=== PATIENT | male | born 1970 | race Caucasian/White ===

== ENCOUNTER 2023-01-18 20:10 | Inpatient (IN) | payer MEDICAID ==
[~2023-01-18] VITALS: Ht 165.1 cm; Wt 71.7 kg
--- NOTE | 2023-01-18 20:35 | NUR ---
PT PLACED ON 4L NC, O2 SAT AT 95% IN WAITING ROOM UNTIL BED IS OPEN. MD AND CN MADE AWARE.
[2023-01-18 20:39] VITALS: BP_SYST 113
--- NOTE | 2023-01-18 21:10 | NUR ---
Dr. Pedroza at bedside examining the patient.
--- NOTE | 2023-01-18 21:36 | NUR ---
COVID SWAB COLLECTED AND SENT TO LAB.
[2023-01-18 21:39] LABS: BASOPHILS % (AUTO) 0.4 % (0.0-2.0); EOSINOPHILS # (AUTO) 0.1 K/uL (0.0-0.4); HEMATOCRIT 45.3 % (36-54); HEMOGLOBIN 15.1 g/dL (14.0-18.0); LYMPHOCYTES % (AUTO) 20.6 % (20.5-51.5); MEAN CORPUSCULAR HEMOGLOBIN 31 pg (27-31); MEAN CORPUSCULAR HGB CONC 33 % (32-36); MEAN CORPUSCULAR VOLUME 94 fL (79.0-98.0); MONOCYTES # (AUTO) 1.2 K/uL (0.0-1.0); MONOCYTES % (AUTO) 12.1 % (1.7-9.3); NEUTROPHILS # (AUTO) 6.4 K/uL (1.8-7.7); NEUTROPHILS % (AUTO) 65.9 % (40.0-70.0); PLATELET COUNT (AUTO) 198 K/uL (130-430); RED BLOOD CELL COUNT(AUTO) 4.83 MIL/uL (4.2-6.2); RED CELL DISTRIBUTION WIDTH 13.8 % (9.0-15.0); WHITE BLOOD COUNT (AUTO) 9.7 K/uL (4.8-10.8)
[2023-01-18 22:13] LABS: ANION GAP 10 (5-15); CHLORIDE 97 mmol/L (98-107); CREATININE 1.33 mg/dL (0.55-1.30); GFR AFRICAN AMERICAN 73 mL/min (>90); GLUCOSE 89 mg/dL (70-99); UREA NITROGEN, BLOOD 44 mg/dL (8-21)
[2023-01-18 22:16] LABS: ALANINE AMINOTRANSFERASE 19 U/L (12-78); ALBUMIN 3.1 g/dL (3.4-4.8); ASPARTATE AMINOTRANSFERASE 19 U/L (10-37); C-REACTIVE PROTEIN QUANT 6.9 mg/dL (0-0.5); TOTAL BILIRUBIN 0.6 mg/dL (0.0-1.0)
[2023-01-18 22:43] LABS: ACETONE, SERUM NEGATIVE (NEGATIVE)
--- NOTE | 2023-01-18 22:48 | NUR ---
PT AT 4L NC. NO MEDICATIONS TAKEN HOME.
--- NOTE | 2023-01-18 22:55 | NUR ---
Admit bed requested Patient will be admitted to care of Dr.A. KLINE. Admitted to MED SURG unit. Diagnosis PNA Inpatient (Yes or No) YES Observation (Yes or No) NO Orientation concerns or request close to nursing station (Yes or No) NO Covid Status NEGATIVE On vent or bipap NO Isolation requirements NO Needs a sitter NO From Home (Yes or if No enter name of facility) YES Requires Dialysis (Yes or No) NO Med Rec Completed (Yes of No) YES
[2023-01-19] MEDS ORDERED: MORPHINE 4 MG INJ. 4 MG/ML VIAL IVP ONE
--- NOTE | 2023-01-19 01:11 | NUR ---
RECEIVED PT FROM ER [facility]IA [facility] WITH SOB AND FEVER OF 101.2, AOX3, C/O ABD PAIN 04/09, PT MADE COMFORTABLE IN BED, PATENT IV ACCESS TO THE LAC, STARTED ON 2L OF OXYGEN VIA N/C, ON BEDREST, FAMILY MEMBER BY BEDSIDE, OFFERED COOLING MEASURES, CALLED DR BAUTISTA WHO ORDERED MEDS, IV HYDRATION, ORDERED AND GIVEN TO PT, ORIENTED TO ROOM, CALL LIGHT BED POSITIONING, INSTRUCTED TO CALL FOR [employer] MACHINE IF NEEDED, PT VERBALIZED UNDERSTANDING, WILL CONTINUE WITH POC
[2023-01-19] MEDS ORDERED: HYDROcodone/ACETAMIN 5-325 MG TAB (NORCO/ VICODIN) PO PRN ×2 (01:45→09:45)
[2023-01-19] MEDS ORDERED: NALOXONE HCL 0.4 MG/ML AMP (NARCAN) IVP PRN ×4 (01:45→09:45)
[2023-01-19] MEDS ORDERED: HYDROcodone/ACETAMIN 10-325 MG TAB PO PRN ×2 (01:45→09:45)
[2023-01-19] MEDS ORDERED: ACETAMINOPHEN 325 MG TABLET PO PRN ×2 (01:45→09:45)
[2023-01-19] MEDS: D5/0.45 NS 1,000 ML IV SCH ×3 (01:56→21:57)
[2023-01-19] MEDS: cefTRIAXone 1 GM in D5W 50 ML IV SCH ×2 (02:30→21:55)
[2023-01-19] MEDS ORDERED: AZITHROMYCIN 500 MG in NS 250 ML IV ONE (02:30)
[2023-01-19] MEDS ORDERED: cefTRIAXone 1 GM IVPB PREMIX 50 ML IV ONE (04:01)
[2023-01-19] MEDS ORDERED: AZITHROMYCIN 500 MG/VIAL (ZITHROMAX) IV ONE ×2 (04:01→22:01)
--- NOTE | 2023-01-19 06:54 | NUR ---
PT IN BED, AOX3, EVEN AND UNLABORED BREATHING NOTED, NO FEVER ATT, PT DENIED SOB, CP , N/V OR PAIN ATT, PATENT IV TO THE LAC WITH D5 1/2 ONGOING, ON 2L OF OXYGEN VIA N/C, ON BEDREST, VOIDING, WILL ENDORSE TO INCOMING RN
[2023-01-19 07:51] VITALS: BP_SYST 131
[2023-01-19] MEDS ORDERED: D5/0.45 NS 1,000 ML IV SCH (09:45)
[2023-01-19] MEDS ORDERED: ALBUTEROL SULFATE 0.083% 2.5 MG/3 ML VIAL.NEB INH PRN (09:45)
[2023-01-19] MEDS ORDERED: IPRATROPIUM BROM 0.5 MG/2.5 ML VIAL.NEB (ATROVENT) INH PRN (09:45)
[2023-01-19] MEDS ORDERED: ONDANSETRON HCL 4 MG/2 ML VIAL IVP PRN (09:45)
[2023-01-19 15:27] VITALS: BP_SYST 107
[2023-01-19 19:55] VITALS: BP_SYST 98
--- NOTE | 2023-01-19 20:00 | NUR ---
RECEIVED PT IN BED, AOX3, EVEN AND UNLABORED BREATHING NOTED, PT DENIED SOB, CP , N/V OR PAIN ATT, PATENT IV TO THE LAC WITH D5 1/2 ONGOING, ON 2L OF OXYGEN VIA N/C, WILL CONTINUE WITH POC
[2023-01-19] MEDS ORDERED: cefTRIAXone 1 GM VIAL ONE (22:01)
[2023-01-20 00:08] VITALS: BP_SYST 101
[2023-01-20 06:08] LABS: BASOPHILS % (AUTO) 0.2 % (0.0-2.0); EOSINOPHILS # (AUTO) 0.7 K/uL (0.0-0.4); EOSINOPHILS % (AUTO) 8.1 % (0.0-4.0); HEMATOCRIT 43.4 % (36-54); HEMOGLOBIN 14.7 g/dL (14.0-18.0); LYMPHOCYTES # (AUTO) 2.2 K/uL (1.0-5.5); LYMPHOCYTES % (AUTO) 24.7 % (20.5-51.5); MEAN CORPUSCULAR HEMOGLOBIN 32 pg (27-31); MEAN CORPUSCULAR HGB CONC 34 % (32-36); MEAN CORPUSCULAR VOLUME 95 fL (79.0-98.0); MONOCYTES # (AUTO) 0.8 K/uL (0.0-1.0); MONOCYTES % (AUTO) 9.1 % (1.7-9.3); NEUTROPHILS # (AUTO) 5.2 K/uL (1.8-7.7); NEUTROPHILS % (AUTO) 57.9 % (40.0-70.0); PLATELET COUNT (AUTO) 180 K/uL (130-430); RED BLOOD CELL COUNT(AUTO) 4.56 MIL/uL (4.2-6.2); RED CELL DISTRIBUTION WIDTH 13.7 % (9.0-15.0); WHITE BLOOD COUNT (AUTO) 9.1 K/uL (4.8-10.8)
[2023-01-20] MEDS: D5/0.45 NS 1,000 ML IV SCH ×2 (06:21→07:43)
--- NOTE | 2023-01-20 06:32 | NUR ---
PT IN BED, AOX4, EVEN AND UNLABORED BREATHING NOTED, PT DENIED SOB, CP , N/V OR PAIN ATT, PATENT IV TO THE LAC WITH D5 1/2NS ONGOING, ON 2L OF OXYGEN VIA N/C, ON BEDREST, TOLERATING REGULAR DIET, VOIDING, SAFETY PREC MAINTAINED, CALL LIGHT WITHIN REACH, WILL ENDORSE TO INCOMING RN
[2023-01-20 06:57] LABS: ALBUMIN 2.7 g/dL (3.4-4.8); CALCIUM 8.1 mg/dL (8.4-11.0); CREATININE 0.87 mg/dL (0.55-1.30); TOTAL BILIRUBIN 0.3 mg/dL (0.0-1.0)
[2023-01-20 07:30] VITALS: BP_SYST 103
--- NOTE | 2023-01-20 07:30 | NUR ---
Patient alert and oriented x 4 with occasional non-productive cough. Denies pain or needs. IVF infusing as per order. Continues on 2 liters oxygen. Will wean off as tolerated.
[2023-01-20 11:37] VITALS: BP_SYST 107
--- NOTE | 2023-01-20 13:51 | NUR ---
Ambulated to room. Oxygen saturation 97% on room air. No noted distress with exception of cough. Denies pain. Will continue to monitor.
[2023-01-20 17:59] VITALS: BP_SYST 109
[2023-01-20 20:00] VITALS: BP_SYST 126
[2023-01-20] MEDS: cefTRIAXone 1 GM in D5W 50 ML IV SCH (20:09)
[2023-01-20] MEDS: AZITHROMYCIN 250 MG in NS 250 ML IV SCH (21:12)
[2023-01-21 00:53] VITALS: BP_SYST 112
--- NOTE | 2023-01-21 01:15 | NUR ---
RECEIVED PT GOT SBAR REPORT FROM JESS ARSHAD. PT LYING IN BED. EYES CLOSED. BREATHING EVEN AND NONLABORED ON RA. SAFETY CHECKS IN PLACE. CALL LIGHT IN REACH. CONTINUE TO MONITOR
--- NOTE | 2023-01-21 01:18 | NUR ---
PATIENT IN BED RESTING, EYES CLOSED, RA, VSS, AMB IN ROOM, LAC PIV SL (IV ABTS), CONT OF B/B, DENIES ALL PAIN DURING THIS SHIFT.
--- NOTE | 2023-01-21 01:19 | NUR ---
REPORT GIVEN TO RANDY CANAS
[2023-01-21 06:16] LABS: HEMOGLOBIN 14.8 g/dL (14.0-18.0)
[2023-01-21 06:43] LABS: ALBUMIN 2.7 g/dL (3.4-4.8); C-REACTIVE PROTEIN QUANT 6.2 mg/dL (0-0.5); CALCIUM 8.3 mg/dL (8.4-11.0); CREATININE 0.71 mg/dL (0.55-1.30); TOTAL BILIRUBIN 0.4 mg/dL (0.0-1.0)
--- NOTE | 2023-01-21 07:11 | NUR ---
CLOSING NOTE PT LYING IN BED. EYES CLOSE. BREATHING EVEN AND NONLABORED ON RA. NO S/S OF ACUTE DISTRESS OR PAIN. SAFETY CHECKS IN PLACE. CALL LIGHT IN REACH. ENDORSED TO DAY SHIFT NURSE
[2023-01-21 07:21] LABS: ERYTHROCYTE SEDIMENTATION RATE 57 MM/HR (0-15)
--- NOTE | 2023-01-21 07:30 | NUR ---
Patient alert and oriented x 4. No acute distress noted. Denies pain or needs. Continues on room air with oxygen saturation 93%. Call light in reach and safety measures in place.
[2023-01-21 07:37] VITALS: BP_SYST 120
[2023-01-21 07:39] LABS: BASOPHILS % (AUTO) 0.4 % (0.0-2.0); EOSINOPHILS # (AUTO) 0.8 K/uL (0.0-0.4); EOSINOPHILS % (AUTO) 9.6 % (0.0-4.0); HEMATOCRIT 44.7 % (36-54); LYMPHOCYTES # (AUTO) 2.1 K/uL (1.0-5.5); LYMPHOCYTES % (AUTO) 23.9 % (20.5-51.5); MEAN CORPUSCULAR HEMOGLOBIN 32 pg (27-31); MEAN CORPUSCULAR HGB CONC 33 % (32-36); MEAN CORPUSCULAR VOLUME 95 fL (79.0-98.0); MONOCYTES # (AUTO) 0.8 K/uL (0.0-1.0); MONOCYTES % (AUTO) 8.9 % (1.7-9.3); NEUTROPHILS % (AUTO) 57.2 % (40.0-70.0); PLATELET COUNT (AUTO) 200 K/uL (130-430); RED BLOOD CELL COUNT(AUTO) 4.69 MIL/uL (4.2-6.2); RED CELL DISTRIBUTION WIDTH 13.7 % (9.0-15.0); WHITE BLOOD COUNT (AUTO) 8.7 K/uL (4.8-10.8)
[2023-01-21 11:08] VITALS: BP_SYST 113
[2023-01-21 17:07] VITALS: BP_SYST 102
--- NOTE | 2023-01-21 19:00 | NUR ---
Patient sitting up in bed. No noted distress. Denies pain. Report given to pm nurse.
[2023-01-21 19:30] VITALS: BP_SYST 107
--- NOTE | 2023-01-21 19:30 | NUR ---
PM ASSESSMENT; - Patient is awake, alert, oriented X 4. Patient oriented to hospital room, call light, toileting, pain management and safety-teach back done. Pt denies any chest pain,pain,N&V,sob,or any acute distress. Patient informed that will be I (Manuela)will be his nurse and that their room number is 117-A. Call light within reach, side rails x2. VSS. IV site patent no s/s any infiltration after flushed w/ NS. Cont to monitor pt.
[2023-01-21 20:06] LABS: MYCOPLASMA PNEUMONIAE IgG 1430 U/mL (0-99); MYCOPLASMA PNEUMONIAE IgM <770 U/mL (0-769)
[2023-01-21] MEDS: cefTRIAXone 1 GM in D5W 50 ML IV SCH (21:18)
[2023-01-21] MEDS: AZITHROMYCIN 250 MG in NS 250 ML IV SCH (21:19)
[2023-01-22] VITALS: BP_SYST 116
--- NOTE | 2023-01-22 00:23 | NUR ---
ROUNDS; -Pt is asleep. No s/s any pain,sob,or any acute distress noted. Side rails x3,call light w/in reach. will cont to monitor pt.
--- NOTE | 2023-01-22 04:15 | NUR ---
ROUNDS; -Pt is asleep. No s/s any pain,sob,or any acute distress noted. IV site patent no s/s any infiltration noted. Bed alarmed, side rails x3,call light w/in reach. will cont to monitor pt.
--- NOTE | 2023-01-22 06:49 | NUR ---
CLOSING NOTES; -Pt is asleep. No s/s any pain,sob,or any acute distress noted. IV site patent no s/s any infiltration noted. Pt's condition stable. Bed alarmed, side rails x3,call light w/in reach. Will endorse to next nurse to cont care.
[2023-01-22 07:24] LABS: C-REACTIVE PROTEIN QUANT 3.4 mg/dL (0-0.5); CALCIUM 8.6 mg/dL (8.4-11.0); CREATININE 0.75 mg/dL (0.55-1.30)
--- NOTE | 2023-01-22 07:35 | NUR ---
received pt asleep. no distress. respirations even, unlabored. skin warm and dry. call light in reach.
[2023-01-22 07:53] LABS: BASOPHILS % (AUTO) 0.4 % (0.0-2.0); EOSINOPHILS # (AUTO) 0.7 K/uL (0.0-0.4); EOSINOPHILS % (AUTO) 7.4 % (0.0-4.0); HEMATOCRIT 45.2 % (36-54); HEMOGLOBIN 15.2 g/dL (14.0-18.0); LYMPHOCYTES # (AUTO) 2.3 K/uL (1.0-5.5); LYMPHOCYTES % (AUTO) 25.2 % (20.5-51.5); MEAN CORPUSCULAR HEMOGLOBIN 32 pg (27-31); MEAN CORPUSCULAR HGB CONC 34 % (32-36); MEAN CORPUSCULAR VOLUME 94 fL (79.0-98.0); MONOCYTES # (AUTO) 0.7 K/uL (0.0-1.0); NEUTROPHILS # (AUTO) 5.4 K/uL (1.8-7.7); PLATELET COUNT (AUTO) 242 K/uL (130-430); RED BLOOD CELL COUNT(AUTO) 4.78 MIL/uL (4.2-6.2); RED CELL DISTRIBUTION WIDTH 13.6 % (9.0-15.0); WHITE BLOOD COUNT (AUTO) 9.1 K/uL (4.8-10.8)
[2023-01-22 08:00] VITALS: BP_SYST 111; BP_SYST 140
[2023-01-22 08:34] LABS: ERYTHROCYTE SEDIMENTATION RATE 51 MM/HR (0-15)
--- NOTE | 2023-01-22 09:10 | NUR ---
pt awake, alert, oriented, no distress. occasional congested cough, nonproductive. skin warm and dry. denies pain, denies discomfort. states bm this morning, voiding without difficulty. BRP. call light in reach
[2023-01-22 11:40] VITALS: BP_SYST 110
[2023-01-22 12:10] VITALS: BP_SYST 110
--- NOTE | 2023-01-22 15:56 | NUR ---
pt in restroom when Dr Block entered room. left prior to seeing pt. back to bed. lab drawing blood work now.
[2023-01-22 16:23] VITALS: BP_SYST 113
[2023-01-22 19:32] VITALS: BP_SYST 121
--- NOTE | 2023-01-22 19:32 | NUR ---
PM ASSESSMENT; - Patient is awake, alert, oriented X 4. Patient oriented to hospital room, call light, toileting, pain management and safety-teach back done. Pt denies any chest pain,pain,N&V,sob,or any acute distress. Patient informed that I (Manuela) will be his nurse and that their room number is 117-A. Call light within reach, side rails x2. VSS. IV site patent no s/s any infiltration after flushed w/ NS. Cont to monitor pt.
[2023-01-22] MEDS: cefTRIAXone 1 GM in D5W 50 ML IV SCH (20:46)
[2023-01-22] MEDS: AZITHROMYCIN 250 MG in NS 250 ML IV SCH (20:46)
[2023-01-23 00:10] VITALS: BP_SYST 103
--- NOTE | 2023-01-23 00:12 | NUR ---
ROUNDS; -Pt is resting in bed comfortably. Pt denies any pain,sob,or any acute distress. VSS. Side rails x2,call light w/in reach. will cont to monitor pt.
--- NOTE | 2023-01-23 04:18 | NUR ---
ROUNDS; -Pt is asleep. No s/s any pain,sob,or any acute distress noted. Bed alarmed, side rails x3,call light w/in reach. will cont to monitor pt.
[2023-01-23 06:57] LABS: BASOPHILS # (AUTO) 0.1 K/uL (0.0-0.2); BASOPHILS % (AUTO) 0.6 % (0.0-2.0); EOSINOPHILS # (AUTO) 0.6 K/uL (0.0-0.4); EOSINOPHILS % (AUTO) 7.1 % (0.0-4.0); HEMATOCRIT 46.5 % (36-54); HEMOGLOBIN 15.8 g/dL (14.0-18.0); LYMPHOCYTES # (AUTO) 3.1 K/uL (1.0-5.5); LYMPHOCYTES % (AUTO) 35.5 % (20.5-51.5); MEAN CORPUSCULAR HEMOGLOBIN 32 pg (27-31); MEAN CORPUSCULAR HGB CONC 34 % (32-36); MEAN CORPUSCULAR VOLUME 93 fL (79.0-98.0); MONOCYTES # (AUTO) 0.6 K/uL (0.0-1.0); MONOCYTES % (AUTO) 6.4 % (1.7-9.3); NEUTROPHILS # (AUTO) 4.4 K/uL (1.8-7.7); NEUTROPHILS % (AUTO) 50.4 % (40.0-70.0); PLATELET COUNT (AUTO) 288 K/uL (130-430); RED CELL DISTRIBUTION WIDTH 13.3 % (9.0-15.0); WHITE BLOOD COUNT (AUTO) 8.7 K/uL (4.8-10.8)
[2023-01-23 07:16] LABS: C-REACTIVE PROTEIN QUANT 1.9 mg/dL (0-0.5); CALCIUM 8.8 mg/dL (8.4-11.0); CREATININE 0.82 mg/dL (0.55-1.30)
--- NOTE | 2023-01-23 07:45 | NUR ---
received pt asleep. no distress. awakens easily. denies pain. skin warm and dry. iv intact. call light in reach. water provided. vitals stable. no coughing at this time
[2023-01-23 08:00] VITALS: BP_SYST 128
[2023-01-23 08:07] LABS: ERYTHROCYTE SEDIMENTATION RATE 58 MM/HR (0-15)
[2023-01-23 12:00] VITALS: BP_SYST 116
--- NOTE | 2023-01-23 12:15 | NUR ---
encouraged pt to ambulate in room for mobility respirations even, unlabored. no distress. smiling, pleasant asking when he may dc home. explained he is still receiving iv antibiotics and no notes yet from MD to indicate discharge.
[2023-01-23 16:44] VITALS: BP_SYST 120
--- NOTE | 2023-01-23 17:00 | NUR ---
no distress. call light in reach water provided.
[2023-01-23 19:50] VITALS: BP_SYST 121
--- NOTE | 2023-01-23 19:55 | NUR ---
RECEIVED PT IN BED, AOX4, EVEN AND UNLABORED BREATHING NOTED, PT DENIED SOB, CP , N/V OR PAIN ATT, SALINE LOCK IV TO THE LAC, ON RA, AMBULATORY, WILL CONTINUE WITH POC
[2023-01-23] MEDS: cefTRIAXone 1 GM in D5W 50 ML IV SCH (20:31)
[2023-01-23] MEDS ORDERED: AZITHROMYCIN 500 MG/VIAL (ZITHROMAX) IV ONE (21:42)
[2023-01-23] MEDS: AZITHROMYCIN 250 MG in NS 250 ML IV SCH (21:51)
[2023-01-24 01:51] VITALS: BP_SYST 122
--- NOTE | 2023-01-24 06:30 | NUR ---
PT IN BED, AOX4, EVEN AND UNLABORED BREATHING NOTED, PT DENIED SOB, CP , N/V OR PAIN ATT, SALINE LOCK IV TO THE LAC, PATENT AND INTACT, ON RA, AMBULATORY TO RESTROOM, TOLERATING REGULAR DIET, SAFETY PREC MAINTAINED, CALL LIGHT WITHIN REACH, WILL ENDORSE TO INCOMING RN
[2023-01-24 06:34] LABS: COCCIDIOIDES AB IGG 1.3 IV (<=0.9); COCCIDIOIDES AB IGM 0.1 IV (<=0.9)
[2023-01-24 07:10] LABS: BASOPHILS % (AUTO) 0.5 % (0.0-2.0); EOSINOPHILS # (AUTO) 0.7 K/uL (0.0-0.4); EOSINOPHILS % (AUTO) 7.7 % (0.0-4.0); HEMATOCRIT 45.4 % (36-54); HEMOGLOBIN 15.5 g/dL (14.0-18.0); LYMPHOCYTES # (AUTO) 2.7 K/uL (1.0-5.5); MEAN CORPUSCULAR HEMOGLOBIN 32 pg (27-31); MEAN CORPUSCULAR HGB CONC 34 % (32-36); MEAN CORPUSCULAR VOLUME 94 fL (79.0-98.0); MONOCYTES # (AUTO) 0.5 K/uL (0.0-1.0); MONOCYTES % (AUTO) 6.2 % (1.7-9.3); NEUTROPHILS # (AUTO) 4.7 K/uL (1.8-7.7); NEUTROPHILS % (AUTO) 54.6 % (40.0-70.0); PLATELET COUNT (AUTO) 311 K/uL (130-430); RED BLOOD CELL COUNT(AUTO) 4.86 MIL/uL (4.2-6.2); RED CELL DISTRIBUTION WIDTH 13.2 % (9.0-15.0); WHITE BLOOD COUNT (AUTO) 8.6 K/uL (4.8-10.8)
[2023-01-24 07:38] LABS: ALBUMIN 2.9 g/dL (3.4-4.8); C-REACTIVE PROTEIN QUANT 0.8 mg/dL (0-0.5); CALCIUM 8.6 mg/dL (8.4-11.0); CREATININE 0.84 mg/dL (0.55-1.30); TOTAL BILIRUBIN 0.5 mg/dL (0.0-1.0)
[2023-01-24 07:49] LABS: ERYTHROCYTE SEDIMENTATION RATE 43 MM/HR (0-15)
--- NOTE | 2023-01-24 12:28 | NUR ---
SEND OUT LAB RESULTS Per Nubia in lab HIV was collected 01/19 and should have results at this time. She states that lab staff will follow up with the send out lab to identify the delay. TB gold was collected 01/23 and has a 3 day turn around time, results cannot be expected until 01/26. Cocci and Crypto testings have been resulted. Legionella is a urine specimen that nursing staff has to deliver to the laboratory.
[2023-01-24 13:00] VITALS: BP_SYST 113
[2023-01-24 13:06] LABS: CRYPTOCOCCUS AG, SERUM Negative (Negative)
--- NOTE | 2023-01-24 13:30 | NUR ---
Urine specimen for legionella collected and sent to the lab
[2023-01-24 16:51] VITALS: BP_SYST 119
--- NOTE | 2023-01-24 17:40 | NUR ---
Per Kathrine in lab staff HIV test has been sent out today and the recent stat order placed at about 1700 can be cancelled. This 1700 order was placed after this literary writer spoke with Kathrine in the lab and was informed that the HIV test that was cancelled due to the specimen not being received
--- NOTE | 2023-01-24 18:45 | NUR ---
Mr Edouard has been assessed as indicated. He continues to deny pain. He ambulates independently. He prefers his bed to be very high. this has been discouraged and the risks have been explained. yet insists on his preferred bed height. He continues to have a moist productive cough. He manages his secretions well. He has been made aware of pending lab results that have to be resolved before he can be DC. He was compliant with the DCP. He is presently resting quietly with no s/s of distress or discomfort.
--- NOTE | 2023-01-24 19:30 | NUR ---
OPENING NOTE PT WAS USING RESTROOM. A/O X4. BREATHING EVEN AND NONLABORED. NO ACUTE S/S OF DISTRESS OR PAIN. SAFETY CHECKS IN PLACE. CALL LIGHT IN REACH. CONTINUE TO MONITOR
--- NOTE | 2023-01-24 19:30 | NUR ---
Handoff has been given Gurpreet
[2023-01-24 20:00] VITALS: BP_SYST 115
[2023-01-24] MEDS: cefTRIAXone 1 GM in D5W 50 ML IV SCH (21:31)
[2023-01-24] MEDS: AZITHROMYCIN 250 MG in NS 250 ML IV SCH (21:32)
[2023-01-25] VITALS: BP_SYST 119
--- NOTE | 2023-01-25 | NUR ---
ROUNDING NOTE PT LYING IN BED AND USING PHONE. BREATHING EVEN AND NONLABORED. NO PAIN REPORTED. SAFETY CHECKS IN PLACE. CALL LIGHT IN REACH. CONTINUE TO MONITOR
[2023-01-25 02:11] VITALS: BP_SYST 115
[2023-01-25 05:05] LABS: BASOPHILS # (AUTO) 0.1 K/uL (0.0-0.2); BASOPHILS % (AUTO) 0.6 % (0.0-2.0); EOSINOPHILS # (AUTO) 0.8 K/uL (0.0-0.4); EOSINOPHILS % (AUTO) 9.1 % (0.0-4.0); HEMATOCRIT 45.7 % (36-54); HEMOGLOBIN 15.3 g/dL (14.0-18.0); LYMPHOCYTES # (AUTO) 2.9 K/uL (1.0-5.5); LYMPHOCYTES % (AUTO) 34.9 % (20.5-51.5); MEAN CORPUSCULAR HEMOGLOBIN 31 pg (27-31); MEAN CORPUSCULAR HGB CONC 33 % (32-36); MEAN CORPUSCULAR VOLUME 93 fL (79.0-98.0); MONOCYTES # (AUTO) 0.6 K/uL (0.0-1.0); MONOCYTES % (AUTO) 7.7 % (1.7-9.3); NEUTROPHILS % (AUTO) 47.7 % (40.0-70.0); PLATELET COUNT (AUTO) 288 K/uL (130-430); RED BLOOD CELL COUNT(AUTO) 4.89 MIL/uL (4.2-6.2); RED CELL DISTRIBUTION WIDTH 13.5 % (9.0-15.0); WHITE BLOOD COUNT (AUTO) 8.4 K/uL (4.8-10.8)
[2023-01-25 05:40] LABS: C-REACTIVE PROTEIN QUANT 0.5 mg/dL (0-0.5); CALCIUM 8.6 mg/dL (8.4-11.0); CREATININE 0.76 mg/dL (0.55-1.30)
--- NOTE | 2023-01-25 07:47 | NUR ---
CLOSING NOTE PT LYING IN BED. A/O X4. BREATHING EVEN AND NONLABORED. NO ACUTE S/S OF DISTRESS OR PAIN. SAFETY CHECKS IN PLACE. CALL LIGHT IN REACH. ENDORSED TO DAY SHIFT NURSE
[2023-01-25 08:00] VITALS: BP_SYST 102
[2023-01-25 08:10] LABS: ERYTHROCYTE SEDIMENTATION RATE 48 MM/HR (0-15)
[2023-01-25] MEDS ORDERED: LEVO-62 PO (10:42)
--- NOTE | 2023-01-25 11:09 | NUR ---
CM: Per dr De Leon , concurred with dr Fabian,: the pt is discharged , no need to wait for TB gold result.
[2023-01-25 11:11] VITALS: BP_SYST 101
--- NOTE | 2023-01-25 15:12 | NUR ---
D/C Patient Patient given medication reconciliation form and D/C instructions. Exit Care provided. Patient verbalized understanding. MD discussed with patient the results and treatment provided. Ambulatory with steady gait for discharge to home. Patient in stable condition, ID band removed. IV catheter removed, intact and dressing applied, no active bleeding. Rx of given. Patient educated on pain management. All belongings sent with patient.
[2023-01-25 16:56] VITALS: BP_SYST 107
[2023-01-25] MEDS ORDERED: levoFLOXacin 500 MG TABLET PO SCH (21:00)
== END 2023-01-25 16:00 | disposition home or self-care (01) | DRG 720 ==
LOC: SED 20:10 → SMU 22:26
PROVIDERS: ADMIT Preventive Medicine Preventive Medicine/Occupational Environmental Medicine; ATTEND Preventive Medicine Preventive Medicine/Occupational Environmental Medicine
DX: A41.9 Sepsis, unspecified organism (principal); J96.01 Acute respiratory failure with hypoxia; N17.0 Acute kidney failure with tubular necrosis; J18.9 Pneumonia, unspecified organism; E44.0 Moderate protein-calorie malnutrition; E87.1 Hypo-osmolality and hyponatremia; E83.51 Hypocalcemia; E88.09 Other disorders of plasma-protein metabolism, not elsewhere classified; N17.9 Acute kidney failure, unspecified; Z20.822 Contact with and (suspected) exposure to COVID-19; R59.1 Generalized enlarged lymph nodes
CPT/HCPCS: 36415; 71045; 71275; 76376; 80048; 80053; 82009; 83605; 83880; 84484; 85025; 85651-TC; 86140; 86480; 86635; 86738; 87040; 87449; 87899; 93005; 94640; 94760; 96365; 99285; J0456; J0696; J7050; J7060; J7613; Q9967